=== PATIENT | male | born 1945 | race African-American/Black ===

== ENCOUNTER 2019-04-25 06:28 | Day surgery (SDC) | payer OTHER ==
[2019-04-20 08:29] VITALS: BMI 25.8
[2019-04-25] MEDS ORDERED: PROPOFOL 20 ML ONE ×3 (06:59→07:01)
[2019-04-25] MEDS ORDERED: MIDAZOLAM HCL 2 MG/2 ML SINGLE DOSE VIAL ONE (06:59)
[2019-04-25] MEDS ORDERED: SUCCINYLCHOLINE CHLORIDE 200 MG/10 ML SYRINGE ONE (07:01)
[2019-04-25] MEDS ORDERED: EPHEDRINE SULFATE/0.9% NACL/PF 50 MG/10 ML SYRINGE NR ONE (07:02)
[2019-04-25] MEDS ORDERED: LIDOCAINE HCL 1%, 10 MG/ML (20ML VIAL) ONE (07:05)
[2019-04-25] MEDS ORDERED: BUPIVACAINE HCL/PF 0.5% (5MG/ML) 10 ML VIAL ONE (07:06)
[2019-04-25] MEDS ORDERED: CLINDAMYCIN PHOSPHATE 600 MG/4 ML VIAL ONE (07:20)
[2019-04-25] MEDS ORDERED: ACETAMINOPHEN WITH CODEINE 300MG/30MG TABLET PO PRN (08:27)
[2019-04-25 10:05] VITALS: BP 110/67; PULSE 55; TEMP 97.9
--- NOTE | 2019-04-25 13:57 | OP ---
DATE OF OPERATION: 04/25/2019 SURGEON: Marc Bassett DPM [employer]INT DEVELOPER: Paul Crocker MD PREOPERATIVE DIAGNOSIS: Hammer toe, left 3rd toe. POSTOPERATIVE DIAGNOSIS: Hammer toe, left 3rd toe. OPERATIVE PROCEDURE: Arthroplasty, left 3rd toe. OPERATION IN DETAIL: The patient was taken into the operating room, placed on the operating room table in supine position. The usual aseptic prepping and draping were performed after local anesthesia with a total of 6 mL of 0.5% Marcaine and 1 L were injected to do a local block of the toe. Following the local anesthesia, prepping and draping were completed, and the leg was lowered to the operating table. Attention was directed to the distal and phalangeal joint of the left 3rd toe where 2 semielliptical transverse incisions were effectively placed over the joint excising a wedge of skin. The incision was deepened down to bone cutting through the tendon. Medial, lateral collateral ligaments and head of the middle phalanx were incised delivering the head dorsally into the interspace. At this point, at the surgical neck, and arthroplasty cutting the head of the proximal phalanx was performed. The area was flushed with copious amounts of sterile saline. Tendon was reapproximated and closed with No. 4-0 Vicryl. Skin was reapproximated and closed with No. 4-0 nylon. A dry, sterile dressing was applied to the operative foot. Capillary filling time was noted to be intact at bandaging. All vital signs were noted to be intact. MARC BASSETT DPM [id number]
--- NOTE | 2019-04-27 12:45 | PATH ---
Surgical Pathology Report Patient Name: KHANG JULIEN Med. Rec. #: [id number] /Age/Gender: 1945 (Age: 73) / M Account: [id number] Location: [facility] AMBULATORY Taken: 04/25/2019 Received: 04/25/2019 Reported: 04/27/2019 Physicians: Johnson Betancur Specimen(s) Received LEFT THIRD TOE BONE & SKIN Clinical History Hammertoe left third toe Final Diagnosis BONE AND SKIN, LEFT THIRD TOE, ARTHROPLASTY: CARTILAGE-CAPPED BONE AND SKIN WITH NO PATHOLOGIC FINDINGS. Electronically Signed Kia Salinas M.D. Gross Description Received in formalin labeled "left third toe bone and skin," is a 0.9 x 0.5 x 0.4 cm hayden-yellow portion of bone as well as a 1.3 x 0.3 cm hayden, elliptical, unremarkable portion of skin. The bone is bisected and entry level sales representative sections are submitted in one cassette, following decalcification. /04/26/2019 saudi/04/26/2019
== END 2019-04-25 10:05 | disposition home or self-care (01) ==
LOC: FASU 06:28
PROVIDERS: ATTEND Podiatrist
PROC: 0SRQ0JZ Replacement of Left Toe Phalangeal Joint with Synthetic Substitute, Open Approach (ICD-10-PCS; principal; 2019-04-25 07:52)
DX: M20.42 Other hammer toe(s) (acquired), left foot (principal)
CPT/HCPCS: 73630-TC-LT; 88304-TC; 88311-TC